=== PATIENT | male | born 1965 | race Caucasian/White ===

== ENCOUNTER 2024-06-06 16:51 | Emergency (ER) | payer OTHER ==
--- OUTSIDE RECORDS SUMMARY | 2024-06-06 16:55 | XMS REPORT | Continuity of Care Document ---
Author Name Unknown Address [address] [facility] [address] [place] [address] [facility] Address [address] [facility] [address] [place] [address] Care Team Providers Care Public Speaking Coach Name Role Phone JESS LEONARD Primary Care Physician Unavailab JESS Voss Attending Clinician Unavailable Ace HARDING, Jess Attending Clinician [phone] Jess Leonard MD Attending Clinician [phone] Stepan Glover MD Attending Clinician [phone] Doctor Unassigned, [place] Attending Clinician U sophia Madden MD, Ellen Joseph Attending Clinician [phone] ELLEN MADDEN Attending Clinician Unavailabl e Lab, Adc Fam Pob I Attending Clinician Unavailab le 2, [facility] Lab Attending Clinician Unavailable Payers Payer Name Policy Type Policy Number Effective Date Expirati on Date Source [employer] [id number] 2018 00:00:00 Problems Condition Name Condition Details Condition Category Status Onset Date Resolution Date Last Treatment Date Treating Clinician Comments Source Current smoker Current smoker Disease Active 2014-08 00:00: 00 [facility] Essential hypertensi on, benign Essential hypertensi on, benign Disease Active 2014-08 00:00: 00 [facility] H/O: hypertensi on H/O: hypertensi on Disease Active 2014-08 00:00: 00 [facility] Obesity Obesity Disease Active 2014-08 00:00: 00 [facility] ADD (attention deficit disorder) without hyperactiv ity ADD (attention deficit disorder) without hyperactiv ity Disease Active 2014-08 00:00: 00 [facility] Osteoarthr itis Osteoarthr itis Disease Active 2014-08 00:00: 00 [facility] Allergies, Adverse Reactions, Alerts Allergy Name Allergy Type Status Severity Reaction(s) Onset Date Inactive Date Treating Clinician Comments Source Nsaids (Non-Bridger roidal Anti-Inf lammator y Drug) Propensi ty to adverse reaction s to drug Active Other - See comments 2014-08 00:00: 00 Bloody stool [facility] Nsaids (Non-Bridger roidal Anti-Inf lammator y Drug) Propensi ty to adverse reaction s to drug Active Other - See comments 2014-08 00:00: 00 Bloody stool [facility] NSAIDS (NON-BRIDGER ROIDAL ANTI-INF LAMMATOR Y DRUG) Drug Class Active Other-Cmnt 2014-08 00:00: 00 [facility] Social History Social Habit Start Date Stop Date Quantity Comments Source Gender identity [facility] Sexual orientation U [facility] History of tobacco use Cigarette Smoker [facility] Alcoholic beverage intake 2024-05-03 00:00:00 2024-05-03 00:00:00 Current drinker of alcohol (finding) [facility] Tobacco use and exposure 2024-01-11 00:00:00 2024-01-11 00:00:00 Smokeless tobacco non-user [facility] Alcohol intake 2023-12-08 00:00:00 2023-12-08 00:00:00 Current drinker of alcohol (finding) [facility] History of Social function 2023-03-10 00:00:00 2023-03-10 00:00:00 [facility] Exposure to SARS-CoV-2 (event) 2022-11-29 00:00:00 2022-12-09 13:53:00 Not sure [facility] Cigarettes smoked current (pack per day) - Reported 2022-03-25 00:00:00 2022-03-25 00:00:00 [facility] Sex assigned at 1965 00:00:00 1965 00:00:00 [facility] Smoking Status Start Date Stop Date Source Smokes tobacco daily 2024-01-11 00:00:00 [facility] Medications Ordered Medication Name Filled Medication Name Start Date Stop Date Current Medication? Ordering Clinician Indication Dosage Frequency Signature (SIG) Comments Components Source amphetamine -dextroamph etamine (ADDERALL XR) 30 mg 24 hr capsule 05-03 00:00: 00 Yes [id number] TAKE 1 CAPSULE BY MOUTH 2 TIMES DAILY. [facility] montelukast 10 mg tablet 05-03 00:00: 00 Yes [id number] 10mg Take 1 tablet by mouth in the morning. [facility] benazepriL 10 mg tablet 03-15 00:00: 00 Yes [id number] 10mg Take 1 tablet by mouth in the morning. [facility] amphetamine -dextroamph etamine (ADDERALL XR) 30 mg 24 hr capsule 03-15 00:00: 00 05-03 00:00 :00 No [id number] TAKE 1 CAPSULE BY MOUTH 2 TIMES DAILY. [facility] amphetamine -dextroamph etamine (ADDERALL XR) 30 mg 24 hr capsule 02-26 00:00: 00 03-15 00:00 :00 No [id number] TAKE 1 CAPSULE BY MOUTH 2 TIMES DAILY. [facility] amphetamine -dextroamph etamine (ADDERALL XR) 30 mg 24 hr capsule 01-31 00:00: 00 02-26 00:00 :00 No [id number] TAKE 1 CAPSULE BY MOUTH 2 TIMES DAILY. [facility] predniSONE 20 mg tablet 01-10 00:00: 00 Yes [id number] 20mg Take 1 tablet by mouth in the morning. [facility] cefUROXime 500 mg tablet 01-10 00:00: 00 03-15 00:00 :00 No [id number] 500mg Take 1 tablet by mouth in the morning and 1 tablet in the evening. [facility] amphetamine -dextroamph etamine (ADDERALL XR) 30 mg 24 hr capsule 2023-0 5-22 00:00: 00 01-31 00:00 :00 No [id number] TAKE 1 CAPSULE BY MOUTH 2 TIMES DAILY. [facility] amphetamine -dextroamph etamine (ADDERALL XR) 30 mg 24 hr capsule 0 4-17 00:00: 00 12-26 00:00 :00 No [id number] TAKE 1 CAPSULE BY MOUTH 2 TIMES DAILY. [facility] amphetamine -dextroamph etamine (ADDERALL XR) 30 mg 24 hr capsule 0 4-15 00:00: 00 11-21 00:00 :00 No [id number] TAKE 1 CAPSULE BY MOUTH 2 TIMES DAILY. [facility] amphetamine -dextroamph etamine (ADDERALL XR) 30 mg 24 hr capsule 0 3-18 00:00: 00 Yes [id number] TAKE 1 CAPSULE BY MOUTH 2 TIMES DAILY. [facility] amphetamine -dextroamph etamine (ADDERALL XR) 30 mg 24 hr capsule 0 2-01 00:00: 00 10-20 00:00 :00 No [id number] TAKE 1 CAPSULE BY MOUTH 2 TIMES DAILY. [facility] amphetamine -dextroamph etamine (ADDERALL XR) 30 mg 24 hr capsule 0 1-17 00:00: 00 09-08 00:00 :00 No [id number] TAKE 1 CAPSULE BY MOUTH 2 TIMES DAILY. [facility] amphetamine -dextroamph etamine (ADDERALL XR) 30 mg 24 hr capsule 2022-08 2-13 00:00: 00 08-24 00:00 :00 No [id number] TAKE 1 CAPSULE BY MOUTH 2 TIMES DAILY. [facility] amphetamine -dextroamph etamine (ADDERALL XR) 30 mg 24 hr capsule 2022-08 2-11 00:00: 00 07-20 00:00 :00 No [id number] TAKE 1 CAPSULE BY MOUTH 2 TIMES DAILY. [facility] fenofibrate 48 mg tablet 2022-08 1-02 00:00: 00 03-15 00:00 :00 No [id number] 48mg Take 1 tablet by mouth in the morning. [facility] amphetamine -dextroamph etamine (ADDERALL XR) 30 mg 24 hr capsule 2022-08 1-02 00:00: 00 07-18 00:00 :00 No [id number] TAKE 1 CAPSULE BY MOUTH 2 TIMES DAILY. [facility] amphetamine -dextroamph etamine (ADDERALL XR) 30 mg 24 hr capsule 2022-08 0-09 00:00: 00 06-09 00:00 :00 No [id number] TAKE 1 CAPSULE BY MOUTH 2 TIMES DAILY. [facility] amphetamine -dextroamph etamine (ADDERALL XR) 30 mg 24 hr capsule 0 9-05 00:00: 00 Yes [id number] TAKE 1 CAPSULE BY MOUTH 2 TIMES DAILY. [facility] benazepriL 10 mg tablet 8-03 00:00: 00 03-15 00:00 :00 No [id number] 10mg Take 1 tablet by mouth in the morning. [facility] fenofibrate 48 mg tablet 8-03 00:00: 00 06-09 00:00 :00 No [id number] 48mg Take 1 tablet by mouth in the morning. [facility] cefadroxil 500 mg capsule 8-03 00:00: 00 06-09 00:00 :00 No [id number] 500mg Take 1 capsule by mouth in the morning and 1 capsule in the evening. [facility] amphetamine -dextroamph etamine (ADDERALL XR) 30 mg 24 hr capsule 0 8-03 00:00: 00 04-12 00:00 :00 No [id number] TAKE 1 CAPSULE BY MOUTH 2 TIMES DAILY. [facility] amphetamine -dextroamph etamine (ADDERALL XR) 30 mg 24 hr capsule 2022-0 7-03 00:00: 00 03-10 00:00 :00 No [id number] TAKE 1 CAPSULE BY MOUTH 2 TIMES DAILY. [facility] amphetamine -dextroamph etamine (ADDERALL XR) 30 mg 24 hr capsule 0 6-05 00:00: 00 Yes [id number] TAKE 1 CAPSULE BY MOUTH 2 TIMES DAILY. [facility] fenofibrate 48 mg tablet 5-04 00:00: 00 03-10 00:00 :00 No [id number] 48mg Take 1 tablet by mouth in the morning. [facility] benazepriL 10 mg tablet 5-04 00:00: 00 03-10 00:00 :00 No [id number] 10mg Take 1 tablet by mouth in the morning. [facility] amphetamine -dextroamph etamine (ADDERALL XR) 30 mg 24 hr capsule 5-04 00:00: 00 01-10 00:00 :00 No [id number] TAKE 1 CAPSULE BY MOUTH 2 TIMES DAILY. [facility] amphetamine -dextroamph etamine (ADDERALL XR) 30 mg 24 hr capsule 4-05 00:00: 00 12-09 00:00 :00 No [id number] TAKE 1 CAPSULE BY MOUTH 2 TIMES DAILY. [facility] amphetamine -dextroamph etamine (ADDERALL XR) 30 mg 24 hr capsule 3-09 00:00: 00 Yes [id number] TAKE 1 CAPSULE BY MOUTH 2 TIMES DAILY. [facility] HYDROcodone -acetaminop hen 10-325 mg tablet 2-02 00:00: 00 06-09 00:00 :00 No [id number] TAKE 1 TABLET BY MOUTH EVERY SIX HOURS NEEDED FOR PAIN Indication s: chronic pain [facility] carisoprodo L 350 mg tablet 2-02 00:00: 00 06-09 00:00 :00 No [id number] 350mg Take 1 tablet by mouth 4 (four) times daily. [facility] fenofibrate 48 mg tablet 2-02 00:00: 00 12-09 00:00 :00 No [id number] 48mg Take 1 tablet by mouth in the morning. [facility] benazepriL 10 mg tablet 2-02 00:00: 00 12-09 00:00 :00 No [id number] 10mg Take 1 tablet by mouth in the morning. [facility] amphetamine -dextroamph etamine (ADDERALL XR) 30 mg 24 hr capsule 09-09 00:00: 00 10-14 00:00 :00 No [id number] TAKE 1 CAPSULE BY MOUTH 2 TIMES DAILY. [facility] HYDROcodone -acetaminop hen 10-325 mg tablet 2021-08 00:00: 00 09-09 00:00 :00 No [id number] TAKE 1 TABLET BY MOUTH EVERY SIX HOURS NEEDED FOR PAIN Indication s: chronic pain [facility] amphetamine -dextroamph etamine (ADDERALL XR) 30 mg 24 hr capsule 2021-08 00:00: 00 09-09 00:00 :00 No [id number] TAKE 1 CAPSULE BY MOUTH 2 TIMES DAILY. [facility] HYDROcodone -acetaminop hen 10-325 mg tablet 2021-08 00:00: 00 08-05 00:00 :00 No [id number] TAKE 1 TABLET BY MOUTH EVERY SIX HOURS NEEDED FOR PAIN Indication s: chronic pain [facility] amphetamine -dextroamph etamine (ADDERALL XR) 30 mg 24 hr capsule 2021-08 00:00: 00 08-05 00:00 :00 No [id number] TAKE 1 CAPSULE BY MOUTH 2 TIMES DAILY. [facility] diazePAM 5 mg tablet 2021-08-15 00:00: 00 06-09 00:00 :00 No [facility] acetaminoph en-codeine 300-30 mg tablet 2021-08 1-10 00:00: 00 09-09 00:00 :00 No [facility] fenofibrate 48 mg tablet 2021-08- 00:00: 00 09-09 00:00 :00 No [id number] 48mg Take 1 tablet by mouth in the morning. [facility] HYDROcodone -acetaminop hen 10-325 mg tablet 2021-08- 00:00: 00 07-12 00:00 :00 No [id number] TAKE 1 TABLET BY MOUTH EVERY SIX HOURS NEEDED FOR PAIN Indication s: chronic pain [facility] amphetamine -dextroamph etamine (ADDERALL XR) 30 mg 24 hr capsule 2021-08 00:00: 07-12 00:00 :00 No [id number] TAKE 1 CAPSULE BY MOUTH 2 TIMES DAILY. [facility] amphetamine -dextroamph etamine (ADDERALL XR) 30 mg 24 hr capsule 2021-08 00:00: 06-10 00:00 :00 No [id number] TAKE 1 CAPSULE BY MOUTH 2 TIMES DAILY. [facility] HYDROcodone -acetaminop hen 10-325 mg tablet 2021-08 00:00: 00 06-10 00:00 :00 No [id number] TAKE 1 TABLET BY MOUTH EVERY SIX HOURS NEEDED FOR PAIN Indication s: chronic pain [facility] carisoprodo L 350 mg tablet 04-19 00:00: 00 09-09 00:00 :00 No [id number] 350mg Take 1 tablet by mouth 4 (four) times daily. [facility] amphetamine -dextroamph etamine (ADDERALL XR) 30 mg 24 hr capsule 04-19 00:00: 00 05-17 00:00 :00 No [id number] TAKE 1 CAPSULE BY MOUTH 2 TIMES DAILY. [facility] HYDROcodone -acetaminop hen 10-325 mg tablet 04-19 00:00: 00 05-17 00:00 :00 No [id number] TAKE 1 TABLET BY MOUTH EVERY SIX HOURS NEEDED FOR PAIN Indication s: chronic pain [facility] aspirin 81 mg EC tablet 03-18 14:42: 32 Yes [id number] 81mg Take 81 mg by mouth daily. [facility] levocetiriz ine 5 mg tablet 03-18 14:42: 32 Yes 5mg Take 5 mg by mouth every evening. [facility] amphetamine -dextroamph etamine (ADDERALL XR) 30 mg 24 hr capsule 03-18 00:00: 00 Yes [id number] TAKE 1 CAPSULE BY MOUTH 2 TIMES DAILY. [facility] HYDROcodone -acetaminop hen 10-325 mg tablet 03-18 00:00: 00 Yes [id number] TAKE 1 TABLET BY MOUTH EVERY SIX HOURS NEEDED FOR PAIN Indication s: chronic pain [facility] benazepriL 10 mg tablet 03-18 00:00: 00 09-09 00:00 :00 No [id number] 10mg Take 1 tablet by mouth in the morning. [facility] fenofibrate 48 mg tablet 03-18 00:00: 00 06-10 00:00 :00 No [id number] 48mg Take 1 tablet by mouth in the morning. [facility] carisoprodo L 350 mg tablet 11-22 00:00: 00 Yes [id number] 350mg Take 1 tablet by mouth 4 (four) times daily. [facility] Vital Signs Vital Name Observation Time Observation Value Comments S ource Systolic blood pressure 2024-05-03 18:41:00 165 mm[Hg] [facility] Diastolic blood pressure 2024-05-03 18:41:00 80 mm[Hg] [facility] Heart rate 2024-05-03 18:40:00 87 /min [facility] Body height 2024-05-03 18:40:00 180.3 cm [facility] Body weight 2024-05-03 18:40:00 102.513 kg [facility] BMI 2024-05-03 18:40:00 31.52 kg/m2 [facility] Oxygen saturation in Arterial blood by Pulse oximetry 2024-05-03 18:40:00 98 /min [facility] Systolic blood pressure 2024-03-15 20:04:00 166 mm[Hg] [facility] Diastolic blood pressure 2024-03-15 20:04:00 91 mm[Hg] [facility] Heart rate 2024-03-15 20:03:00 80 /min [facility] Body height 2024-03-15 20:03:00 180.3 cm [facility] Body weight 2024-03-15 20:03:00 102.513 kg [facility] BMI 2024-03-15 20:03:00 31.52 kg/m2 [facility] Oxygen saturation in Arterial blood by Pulse oximetry 2024-03-15 20:03:00 98 /min [facility] Systolic blood pressure 2024-01-11 19:59:00 176 mm[Hg] [facility] Diastolic blood pressure 2024-01-11 19:59:00 86 mm[Hg] [facility] Heart rate 2024-01-11 19:58:00 78 /min [facility] Body temperature 2024-01-11 19:58:00 36.44 Sabi [facility] Body height 2024-01-11 19:58:00 180.3 cm [facility] Body weight 2024-01-11 19:58:00 100.562 kg [facility] BMI 2024-01-11 19:58:00 30.92 kg/m2 [facility] Oxygen saturation in Arterial blood by Pulse oximetry 2024-01-11 19:58:00 98 /min [facility] Systolic blood pressure 2023-12-08 20:31:00 160 mm[Hg] [facility] Diastolic blood pressure 2023-12-08 20:31:00 85 mm[Hg] [facility] Heart rate 2023-12-08 20:30:00 79 /min [facility] 2023-12-08 20:30:00 180.3 cm [facility] Body weight 2023-12-08 20:30:00 105.552 kg [facility] BMI 2023-12-08 20:30:00 32.46 kg/m2 [facility] Oxygen saturation in Arterial blood by Pulse oximetry 2023-12-08 20:30:00 98 /min [facility] Systolic blood pressure 2023-09-08 20:19:00 169 mm[Hg] [facility] Diastolic blood pressure 2023-09-08 20:19:00 91 mm[Hg] [facility] Heart rate 2023-09-08 20:18:00 82 /min [facility] Body height 2023-09-08 20:18:00 180.3 cm [facility] Body weight 2023-09-08 20:18:00 109.09 kg [facility] BMI 2023-09-08 20:18:00 33.54 kg/m2 [facility] Oxygen saturation in Arterial blood by Pulse oximetry 2023-09-08 20:18:00 98 /min [facility] Systolic blood pressure 2023-06-09 19:44:00 180 mm[Hg] [facility] Diastolic blood pressure 2023-06-09 19:44:00 103 mm[Hg] [facility] Body height 2023-06-09 19:40:00 180.3 cm [facility] Body weight 2023-06-09 19:40:00 114.034 kg [facility] BMI 2023-06-09 19:40:00 35.06 kg/m2 [facility] Systolic blood pressure 2023-03-10 19:53:00 156 mm[Hg] [facility] Diastolic blood pressure 2023-03-10 19:53:00 89 mm[Hg] [facility] Heart rate 2023-03-10 19:52:00 78 /min [facility] Respiratory rate 2023-03-10 19:52:00 18 /min [facility] Body height 2023-03-10 19:52:00 180.3 cm [facility] Body weight 2023-03-10 19:52:00 117.935 kg [facility] BMI 2023-03-10 19:52:00 36.26 kg/m2 [facility] Oxygen saturation in Arterial blood by Pulse oximetry 2023-03-10 19:52:00 97 /min [facility] Systolic blood pressure 2022-12-09 19:09:00 131 mm[Hg] [facility] Diastolic blood pressure 2022-12-09 19:09:00 76 mm[Hg] [facility] Heart rate 2022-12-09 19:02:00 79 /min [facility] Body height 2022-12-09 19:02:00 180.3 cm [facility] Body weight 2022-12-09 19:02:00 114.306 kg [facility] BMI 2022-12-09 19:02:00 35.15 kg/m2 [facility] Oxygen saturation in Arterial blood by Pulse oximetry 2022-12-09 19:02:00 97 /min [facility] Systolic blood pressure 2022-09-09 18:58:00 144 mm[Hg] [facility] Diastolic blood pressure 2022-09-09 18:58:00 71 mm[Hg] [facility] Heart rate 2022-09-09 18:57:00 79 /min [facility] Body height 2022-09-09 18:57:00 180.3 cm [facility] Body weight 2022-09-09 18:57:00 119.432 kg [facility] BMI 2022-09-09 18:57:00 36.72 kg/m2 [facility] Oxygen saturation in Arterial blood by Pulse oximetry 2022-09-09 18:57:00 98 /min [facility] Systolic blood pressure 2022-06-10 19:30:00 162 mm[Hg] [facility] Diastolic blood pressure 2022-06-10 19:30:00 78 mm[Hg] [facility] Heart rate 2022-06-10 19:30:00 91 /min [facility] Body temperature 2022-06-10 19:30:00 36.67 Sabi [facility] Body height 2022-06-10 19:30:00 180.3 cm [facility] Body weight 2022-06-10 19:30:00 118.842 kg [facility] BMI 2022-06-10 19:30:00 36.54 kg/m2 [facility] Oxygen saturation in Arterial blood by Pulse oximetry 2022-06-10 19:30:00 97 /min [facility] Systolic blood pressure 2022-03-25 18:57:00 153 mm[Hg] [facility] Diastolic blood pressure 2022-03-25 18:57:00 85 mm[Hg] [facility] Heart rate 2022-03-25 18:51:00 82 /min [facility] Body height 2022-03-25 18:51:00 180.3 cm [facility] Body weight 2022-03-25 18:51:00 122.925 kg [facility] BMI 2022-03-25 18:51:00 37.80 kg/m2 [facility] Oxygen saturation in Arterial blood by Pulse oximetry 2022-03-25 18:51:00 98 /min [facility] Procedures Procedure Date / Time Performed Performing Clinician Source MEDICATION CORRESPONDENCE 2023-07-25 06:01:00 Do ctor Unassigned, [place] [facility] MEDICATION CORRESPONDENCE 2023-07-18 06:01:00 Do ctor Unassigned, [place] [facility] PATIENT FINANCIAL POLICY 2022-12-09 18:55:12 Doctor Unassigned, [place] [facility] EXTERNAL PROVIDER RECORDS 2022-11-29 05:01:00 Do ctor Unassigned, [place] [facility] MEDICATION CORRESPONDENCE 2022-07-12 06:01:00 Do ctor Unassigned, [place] [facility] Encounters Start Date/Time End Date/Time Encounter Type Admission Type Attending Clinicians Care Facility Care Department Encounter ID Source 2024-06-14 15:15:00 2024-06-14 15:15:00 Outpatient R JESS LEONARD [facility] [id number] [facility] 2024-05-03 13:30:00 2024-05-03 14:00:00 [facility] [id number] 350.1.13.10 [id number] [id number] [facility] 2024-05-03 13:30:00 2024-05-03 13:30:00 Outpatient R JESS LEONARD [facility] [id number] [facility] 2024-05-03 00:00:00 2024-05-03 10:24:06 [facility] [id number] 350.1.13.10 [id number] [id number] [facility] 2024-04-26 13:30:00 2024-04-26 13:30:00 Outpatient JESS MASON [facility] [id number] [facility] 2024-02-27 00:00:00 2024-04-25 11:19:41 [facility] 1..840.114 350.1.13.10 4.2.7.2.686 [id number] [facility] 2024-03-28 00:00:00 2024-03-28 15:41:06 [facility] 1..840.114 350.1.13.10 4.2.7.2.686 [id number] [facility] 2024-03-15 15:00:00 2024-03-15 15:26:53 Outpatient JESS MASON [facility] [id number] [facility] 2024-03-15 15:00:00 2024-03-15 15:15:00 [facility] 1..840.114 350.1.13.10 4.2.7.2.686 [id number] [facility] 2024-02-01 00:00:00 2024-02-01 09:14:22 [facility] 1.2.840.114 350.1.13.10 4.2.7.2.686 [id number] [facility] 2024-01-11 15:00:00 2024-01-11 15:15:00 Office Visit Jess Leonard [facility] 1.2.840.114 350.1.13.10 4.2.7.2.686 [id number] [facility] 2024-01-11 15:00:00 2024-01-11 15:00:00 Outpatient R SYLVIA LEONARDONY [facility] [id number] [facility] 2023-12-28 00:00:00 2023-12-28 15:45:[address] [facility] 1.2.840.114 350.1.13.10 4.2.7.2.686 [id number] [facility] 2023 00:00:00 2023-12-28 06:20:[address] [facility] 1.2.840.114 350.1.13.10 4.2.7.2.686 [id number] [facility] 2023-12-08 15:15:00 2023-12-08 15:30:00 Office Visit Jess Leonard [facility] 1.2.840.114 350.1.13.10 4.2.7.2.686 [id number] [facility] 2023-12-08 15:15:00 2023-12-08 15:15:00 Outpatient R SYLVIA LEONARDONY [facility] [id number] [facility] 2023-11-22 00:00:00 2023-11-22 00:00:00 Telephone Stepan Glover [facility] 1..114 350.1.13.10 4.2.7.2.686 [id number] 044 [id number] [facility] 2023-11-17 00:00:00 2023-11-17 00:00:00 [facility] 1.840.114 350.1.13.10 4.2.7.2.686 [id number] 044 [id number] [facility] 2023-10-21 00:00:00 2023-10-21 00:00:00 Refill Ace Jess [facility] 1..114 350.1.13.10 4.2.7.2.686 [id number] 044 [id number] [facility] 2023-09-08 15:15:00 2023-09-08 15:30:00 Office Visit Jess Leonard [facility] 1..114 350.1.13.10 4.2.7.2.686 [id number] 044 [id number] [facility] 2023-09-08 15:15:00 2023-09-08 14:24:41 Outpatient R JESS LEONARD [facility] [id number] [facility] 2023-08-24 00:00:00 2023-08-24 00:00:[address] [facility] 1..114 350.1.13.10 4.2.7.2.686 [id number] 044 [id number] [facility] 2023-07-25 00:00:00 2023-07-25 00:00:00 Orders Only Doctor Unassigned, [place] [facility] 1..114 350.1.13.10 4.2.7.2.686 [id number] [id number] [facility] 2023-07-23 00:00:00 2023-07-23 00:00:00 Telephone [facility] 1.2.840.114 350.1.13.10 4.2.7.2.686 [id number] 044 [id number] [facility] 2023-07-21 00:00:00 2023-07-21 00:00:00 Telephone [facility] 1.2.840.114 350.1.13.10 4.2.7.2.686 [id number] 044 [id number] [facility] 2023-07-21 00:00:00 2023-07-21 00:00:00 Telephone Jess [facility] 1.2.840.114 350.1.13.10 4.2.7.2.686 [id number] 044 [id number] [facility] 2023-07-20 00:00:00 2023-07-20 00:00:00 Refill Jess [facility] 1.2.840.114 350.1.13.10 4.2.7.2.686 [id number] 044 [id number] [facility] 2023-07-20 00:00:00 2023-07-20 00:00:00 Telephone Jess Leonard [facility] 1.2.840.114 350.1.13.10 4.2.7.2.686 [id number] 044 [id number] [facility] 2023-07-19 00:00:00 2023-07-19 00:00:00 Telephone Jess Leonard [facility] 1.2.840.114 350.1.13.10 4.2.7.2.686 [id number] 044 [id number] [facility] 2023-07-18 00:00:00 2023-07-18 00:00:00 [facility] 1.84.114 350.1.13.10 4.2.7.2.686 [id number] 044 [id number] [facility] 2023-07-18 00:00:00 2023-07-18 00:00:00 Orders Only Doctor Unassigned, [place] [facility] 1.84.114 350.1.13.10 4.2.7.2.686 [id number] 009 [id number] [facility] 2023-06-09 15:15:00 2023-06-09 15:15:00 Office Visit Jess Leonard [facility] 1.84.114 350.1.13.10 4.2.7.2.686 [id number] 044 [id number] [facility] 2023-06-09 15:15:00 2023-06-09 15:00:16 Outpatient R JESS LEONARD [facility] [id number] [facility] 2023-05-13 00:00:00 2023-05-13 00:00:00 Telephone Jess Leonard [facility] 1.84.114 350.1.13.10 4.2.7.2.686 [id number] 044 [id number] [facility] 2023-04-07 00:00:00 2023-04-07 00:00:00 Refill Jess Leonard [facility] 1..114 350.1.13.10 4.2.7.2.686 [id number] [facility] 2023-03-10 15:00:00 2023-03-10 15:30:00 [facility] 1.284.114 350.1.13.10 4.2.7.2.686 [id number] 044 [id number] [facility] 2023-03-10 15:00:00 2023-03-10 15:00:00 Outpatient R JESS LEONARD [facility] [id number] [facility] 2023-02-07 00:00:00 2023-02-07 00:00:00 [facility] 1.840.114 350.1.13.10 4.2.7.2.686 [id number] 044 [id number] [facility] 2023-01-10 00:00:00 2023-01-10 00:00:[address] [facility]HAEL [facility] 1.84.114 350.1.13.10 4.2.7.2.686 [id number] 044 [id number] [facility] 2022-12-09 14:00:00 2022-12-09 14:21:41 Outpatient R JESS LEONARD [facility] [id number] [facility] 2022-12-09 14:00:00 2022-12-09 14:21:41 [facility] 1.284.114 350.1.13.10 4.2.7.2.686 [id number] 044 [id number] [facility] 2022-12-09 00:00:00 2022-12-09 00:00:00 Orders Only Doctor Unassigned, [place] [facility] 1.284114 350.1.13.10 4.2.7.2.686 [id number] 009 [id number] [facility] 2022-11-29 00:00:00 2022-11-29 00:00:00 Orders Only Doctor Unassigned, [place] [facility] 1.2840.114 350.1.13.10 4.2.7.2.686 [id number] 009 [id number] [facility] 2022-11-19 00:00:00 2022-11-19 00:00:00 Telephone Jess Leonard [facility]EL [facility] 1.2840.114 350.1.13.10 4.2.7.2.686 [id number] 044 [id number] [facility] 2022-11-09 00:00:00 2022-11-09 00:00:00 [facility] 1.2840.114 350.1.13.10 4.2.7.2.686 [id number] 044 [id number] [facility] 2022-10-07 00:00:00 2022-10-07 00:00:[address] [facility] 1.840.114 350.1.13.10 4.2.7.2.686 [id number] 044 [id number] [facility] 2022-09-09 14:45:00 2022-09-09 14:45:00 Outpatient R JESS LEONARD [facility] [id number] [facility] 2022-09-09 13:00:00 2022-09-09 13:15:38 Outpatient R JESS LEONARD [facility] [id number] [facility] 2022-09-09 13:00:00 2022-09-09 13:15:[address] [facility] 1.284.114 350.1.13.10 4.2.7.2.686 [id number] 044 [id number] [facility] 2022-09-02 14:45:00 2022-09-02 14:45:00 Outpatient R JESS LEONARD [facility] [id number] [facility] 2022-08-10 00:00:00 2022-08-10 00:00:00 Telephone Jess [facility] 1.2840.114 350.1.13.10 4.2.7.2.686 [id number] 044 [id number] [facility] 2022-08-05 00:00:00 2022-08-05 00:00:00 Refill Jess [facility] 1.2.114 350.1.13.10 4.2.7.2.686 [id number] 044 [id number] [facility] 2022-07-13 00:00:00 2022-07-13 00:00:00 [facility]ill [facility] 1.20.114 350.1.13.10 4.2.7.2.686 [id number] 044 [id number] [facility] 2022-07-12 00:00:00 2022-07-12 00:00:00 [facility] 1.20.114 350.1.13.10 4.2.7.2.686 [id number] 044 [id number] [facility] 2022-07-12 00:00:00 2022-07-12 00:00:00 [facility] 1.2.114 350.1.13.10 4.2.7.2.686 [id number] 044 [id number] [facility] 2022-07-12 00:00:00 2022-07-12 00:00:00 Orders Only Doctor Unassigned, [place] [facility] 1.20.114 350.1.13.10 4.2.7.2.686 [id number] [id number] [facility] 2022-06-10 15:00:00 2022-06-10 15:00:00 Office Visit Jess [facility] 1.2.840.114 350.1.13.10 4.2.7.2.686 [id number] 044 [id number] [facility] 2022-06-10 15:00:00 2022-06-10 14:54:31 Outpatient R JESS LEONARD [facility] [id number] [facility] 2022-05-17 00:00:00 2022-05-17 00:00:00 Refill Sylvia LeonardFoundation [facility] 1.2840.114 350.1.13.10 4.2.7.2.686 [id number] 044 [id number] [facility] 2022-04-19 00:00:00 2022-04-19 00:00:00 Telephone Sylvia [facility]Foundation [facility] 1.2840.114 350.1.13.10 4.2.7.2.686 [id number] 044 [id number] [facility] 2022-04-19 00:00:00 2022-04-19 00:00:00 Refill Jess Leonard [facility] 1.2840.114 350.1.13.10 4.2.7.2.686 [id number] 044 [id number] [facility] 2022-03-25 14:00:00 2022-03-25 14:30:00 Office Visit Sylvia LeonardFoundation [facility]EL [facility] 1.2.840.114 350.1.13.10 4.2.7.2.686 [id number] 044 [id number] [facility] 2022-03-25 14:00:00 2022-03-25 14:00:00 Outpatient R JESS LEONARD [facility] [id number] [facility] 2022-03-18 14:45:00 2022-03-18 15:00:00 Office Visit Jess [facility] 1.2.840.114 350.1.13.10 4.2.7.2.686 [id number] 044 [id number] [facility] 2022-03-18 14:45:00 2022-03-18 14:51:08 Outpatient R JESS LEONARD [facility] [id number] [facility] 2022-03-18 14:45:00 2022-03-18 14:45:00 Outpatient JESS MASON [facility] [id number] [facility] 2022-02-18 00:00:00 2022-02-18 00:00:00 Refill Jess Leonard [facility] 1.2.840.114 350.1.13.10 4.2.7.2.686 [id number] 044 [id number] [facility] 2022-01-21 00:00:00 2022-01-21 00:00:00 Telephone Jess Leonard [facility] 1.2.840.114 350.1.13.10 4.2.7.2.686 [id number] 044 [id number] [facility] 2022-01-19 00:00:00 2022-01-19 00:00:00 Telephone Jess Leonard [facility] 1.2.840.114 350.1.13.10 4.2.7.2.686 [id number] 044 [id number] [facility] 2021-12-24 14:45:00 2021-12-24 15:00:00 Office Visit Jess Leonard [facility] 1.2840.114 350.1.13.10 4.2.7.2.686 [id number] 044 [id number] [facility] 2021-12-24 14:45:00 2021-12-24 14:53:06 [facility] [id number] [facility] 2021-12-24 14:45:00 2021-12-24 14:45:00 Outpatient Sue LEONARD [facility] [id number] [facility] 2021-11-25 00:00:00 2021-11-25 00:00:00 Orders Only Doctor Unassigned, [place] [facility] 1.284.114 350.1.13.10 4.2.7.2.686 [id number] [facility] 2021-11-19 00:00:00 2021-11-19 00:00:00 Refill Leonard [facility] 1.284.114 350.1.13.10 4.2.7.2.686 [id number] 044 [id number] [facility] 2021-11-12 10:45:00 2021-11-12 10:45:00 Office Visit Ellen Madden [facility] 1.84.114 350.1.13.10 4.2.7.2.686 [id number] [facility] 2021-11-12 10:45:00 2021-11-12 10:44:44 Outpatient ELLEN SANTIAGO [facility] [id number] [facility] 2021-11-03 00:00:00 2021-11-03 00:00:00 Orders Only Doctor Unassigned, [place] [facility] 1.2840.114 350.1.13.10 4.2.7.2.686 [id number] 009 [id number] [facility] 2021-10-23 00:00:00 2021-10-23 00:00:00 Maximo WalkerersJess [facility] OFF[facility]ILD[facility] ONE 1.84.114 350.1.13.10 4.2.7.2.686 [id number] 044 [id number] [facility] 2021-10-21 00:00:00 2021-10-21 00:00:00 Telephone Ellen Madden [facility] 1.84.114 350.1.13.10 4.2.7.2.686 [id number] 198 [id number] [facility] 2021-10-19 00:00:00 2021-10-19 00:00:00 Telephone Ellen Madden [facility] 1.840.114 350.1.13.10 4.2.7.2.686 [id number] [facility] 2021-10-09 11:15:00 2021-10-09 11:34:47 Office Visit Ellen Madden [facility] OFF[facility] 1..114 350.1.13.10 4.2.7.2.686 [id number] [facility] 2021-10-09 11:15:00 2021-10-09 11:34:47 Outpatient R ELLEN MADDEN [facility] [id number] [facility] 2021-10-09 11:15:00 2021-10-09 11:15:00 Outpatient R ELLEN MADDEN [facility] [id number] [facility] 2021-10-09 00:00:00 2021-10-09 00:00:00 Telephone Ellen Madden [facility] 1.84.114 350.1.13.10 4.2.7.2.686 [id number] [facility] 2021-10-09 00:00:00 2021-10-09 00:00:00 Orders Only Doctor Unassigned, [place] [facility] 1.2.840.114 350.1.13.10 4.2.7.2.686 [id number] [facility] 2021-10-01 14:45:00 2021-10-01 14:45:00 Outpatient R JESS LEONARD [facility] [id number] [facility] 2021-09-29 00:00:00 2021-09-29 00:00:00 Telephone Ellen Madden [facility] 1.2.840.114 350.1.13.10 4.2.7.2.686 [id number] [facility] 2021-09-24 15:13:57 2021-09-24 23:59:00 Hospital Encounter Jess Leonard [facility] 1..840.114 350.1.13.10 4.2.7.2.686 [id number] [facility] 2021-09-24 15:00:00 2021-09-24 15:15:00 Office Visit Leonard [facility] 1.2.840.114 350.1.13.10 4.2.7.2.686 [id number] 044 [id number] [facility] 2021-09-24 15:00:00 2021-09-24 15:14:35 Outpatient JESS MASON [facility] [id number] [facility] 2021-09-24 15:00:00 2021-09-24 15:00:00 Outpatient JESS MASON [facility] [id number] [facility] 2021-09-24 00:00:00 2021-09-24 00:00:00 Telephone [facility] 1.2.840.114 350.1.13.10 4.2.7.2.686 [id number] 044 [id number] [facility] 2021-08-26 00:00:00 2021-08-26 00:00:00 Refill Jess [facility] BUILD[facility] 1.2.840.114 350.1.13.10 4.2.7.2.686 [id number] 044 [id number] [facility] 2021-07-28 00:00:00 2021-07-28 00:00:00 Refill Jess Leonard [facility] 1.2.840.114 350.1.13.10 4.2.7.2.686 [id number] 044 [id number] [facility] 2021-07-28 00:00:00 2021-07-28 00:00:00 Refill Sylvia [facility]Foundation [facility] 1.2.840.114 350.1.13.10 4.2.7.2.686 [id number] 044 [id number] [facility] 2021-07-27 00:00:00 2021-07-27 00:00:00 Refill Jess [facility] 1.2.840.114 350.1.13.10 4.2.7.2.686 [id number] 044 [id number] [facility] 2021-07-14 00:00:00 2021-07-14 00:00:00 Telephone Jess [facility] 1.2.840.114 350.1.13.10 4.2.7.2.686 [id number] 044 [id number] [facility] 2021-07-11 00:00:00 2021-07-11 00:00:00 Orders Only Doctor Unassigned, [place] [facility] 1..114 350.1.13.10 4.2.7.2.686 [id number] [facility] 2021-07-08 00:00:00 2021-07-08 00:00:00 Telephone Jess Leonard [facility] 1..114 350.1.13.10 4.2.7.2.686 [id number] 044 [id number] [facility] 2021-07-07 00:00:00 2021-07-07 00:00:00 Telephone Jess Leonard [facility] 1.114 350.1.13.10 4.2.7.2.686 [id number] 044 [id number] [facility] 2021-07-01 14:45:00 2021-07-01 14:45:00 Outpatient R JESS LEONARD [facility] [id number] [facility] 2021-07-01 14:45:00 2021-07-01 12:55:47 Outpatient R JESS LEONARD [facility] [id number] [facility] 2021-07-01 12:28:45 2021-07-01 12:43:45 Office Visit Jess Leonard [facility] 1.114 350.1.13.10 4.2.7.2.686 [id number] 044 [id number] [facility] 2021-07-01 00:00:00 2021-07-01 00:00:00 [facility] OFF[facility]ILD[facility] ONE 1..114 350.1.13.10 4.2.7.2.686 [id number] 044 [id number] [facility] 2021-07-01 00:00:00 2021-07-01 00:00:00 Telephone [facility]ILD[facility] 1.2.840.114 350.1.13.10 4.2.7.2.686 [id number] 044 [id number] [facility] 2021-05-29 00:00:00 2021-05-29 00:00:00 [facility] Medical Office Building 1.2.840.114 350.1.13.10 4.2.7.2.686 [id number] 044 [id number] [facility] 2021-05-28 00:00:00 2021-05-28 00:00:00 [facility] Medical [facility] Building 1..840.114 350.1.13.10 4.2.7.2.686 [id number] 044 [id number] [facility] 2021-05-27 00:00:00 2021-05-27 00:00:00 [facility]ill [facility] Medical Office Building 1.2.840.114 350.1.13.10 4.2.7.2.686 [id number] 044 [id number] [facility] 2021-04-30 00:00:00 2021-04-30 00:00:00 Refill [facility] Medical Office Building 1.2.840.114 350.1.13.10 4.2.7.2.686 [id number] 044 [id number] [facility] 2021-04-02 14:30:00 2021-04-02 14:30:00 Outpatient R JESS LEONARD [facility] [id number] [facility] 2021-04-02 13:40:58 2021-04-02 13:55:58 [facility] Building 1.840.114 350.1.13.10 4.2.7.2.686 [id number] 044 [id number] [facility] 2021-04-02 00:00:00 2021-04-02 00:00:00 Refill [facility] 1.0.114 350.1.13.10 4.2.7.2.686 [id number] 044 [id number] [facility] 2021-04-02 00:00:00 2021-04-02 00:00:00 Refill [facility] 1..114 350.1.13.10 4.2.7.2.686 [id number] 044 [id number] [facility] 2021-02-19 00:00:00 2021-02-19 00:00:00 Refill [facility] 1.0.114 350.1.13.10 4.2.7.2.686 [id number] [id number] [facility] 2021-02-19 00:00:00 2021-02-19 00:00:00 Refill [facility] 1..114 350.1.13.10 4.2.7.2.686 [id number] [id number] [facility] 2021-01-22 00:00:00 2021-01-22 00:00:00 Refill [facility] 1..114 350.1.13.10 4.2.7.2.686 [id number] [id number] [facility] 2021-01-08 15:01:41 2021-01-08 15:16:41 Office Visit [facility] 1.2840.114 350.1.13.10 4.2.7.2.686 [id number] [id number] [facility] 2021-01-08 15:15:00 2021-01-08 15:15:00 Outpatient R LEONARDJESS TAYLOR [facility] [id number] [facility] 2021-01-01 14:00:00 2021-01-01 14:00:00 Outpatient R LEONARDJESS TAYLOR [facility] [id number] [facility] 2020-12-23 00:00:00 2020-12-23 00:00:00 Telephone [facility] 1.840.114 350.1.13.10 4.2.7.2.686 [id number] [facility] 2020-11-25 00:00:00 2020-11-25 00:00:00 Refill [facility] 1.840.114 350.1.13.10 4.2.7.2.686 [id number] [id number] [facility] 2020-10-23 00:00:00 2020-10-23 00:00:00 Refill [facility] 1.840.114 350.1.13.10 4.2.7.2.686 [id number] [id number] [facility] 2020-10-02 15:10:34 2020-10-02 15:30:47 [facility] 1.2840.114 350.1.13.10 4.2.7.2.686 [id number] [id number] [facility] 2020-10-02 15:15:00 2020-10-02 15:15:00 Outpatient R JESS LEONARD [facility] [id number] [facility] 2020-08-26 00:00:00 2020-08-26 00:00:00 Refill Jess Leonard [facility] 1..114 350.1.13.10 4.2.7.2.686 [id number] [id number] [facility] 2020-07-28 00:00:00 2020-07-28 00:00:00 Refill Jess Leonard [facility] 1..114 350.1.13.10 4.2.7.2.686 [id number] [id number] [facility] 2020-07-02 14:03:12 2020-07-02 15:33:09 [employer] Visit Lab, Adc Fam Pob I [facility] 1.114 350.1.13.10 4.2.7.2.686 [id number] [id number] [facility] 2020-07-02 13:47:35 2020-07-02 14:17:35 Office Visit Jess Leonard [facility] 1.114 350.1.13.10 4.2.7.2.686 [id number] [id number] [facility] 2020-07-02 14:00:00 2020-07-02 14:00:00 Outpatient R JESS LEONARD [facility] [id number] [facility] 2020-06-12 00:00:00 2020-06-12 00:00:00 Telephone Sylvia Leonardony [facility] 1.114 350.1.13.10 4.2.7.2.686 [id number] [id number] [facility] 2020-06-11 00:00:00 2020-06-11 00:00:00 Orders Only Doctor Unassigned, [place] ROBERT [facility] 1.2.840.114 350.1.13.10 4.2.7.2.686 [id number] [facility] 2020-06-10 00:00:00 2020-06-10 00:00:00 Telephone Jess Leonard [facility] 1.2.840.114 350.1.13.10 4.2.7.2.686 [id number] [facility] 2020-06-06 00:00:00 2020-06-06 00:00:00 Telephone Jess Leonard [facility] 1.2.840.114 350.1.13.10 4.2.7.2.686 [id number] [facility] 2020-06-03 00:00:00 2020-06-03 00:00:00 Refill Jess Leonard [facility] 1.2.840.114 350.1.13.10 4.2.7.2.686 [id number] [facility] 2020-05-06 00:00:00 2020-05-06 00:00:00 Refill Jess Leonard [facility] 1.2.840.114 350.1.13.10 4.2.7.2.686 [id number] [facility] 2020-04-07 09:38:15 2020-04-07 09:53:15 [employer] Operator Visit 2, Adc Lab Jess Leonard [facility] Building 1.2.840.114 350.1.13.10 4.2.7.2.686 [id number] [facility] 2020-04-07 09:07:25 2020-04-07 09:22:25 Office Visit Jess Leonard [facility] Building 1.2.840.114 350.1.13.10 4.2.7.2.686 [id number] [facility] 2020-04-07 09:15:00 2020-04-07 09:15:00 Outpatient R JESS LEONARD [facility] [id number] [facility] 2020-04-03 14:15:00 2020-04-03 14:15:00 Outpatient JESS MASON [facility] [id number] [facility] 2020-04-03 00:00:00 2020-04-03 00:00:00 Telephone Jess Leonard [facility] Building 1..840.114 350.1.13.10 4.2.7.2.686 [id number] [facility] 2020-03-04 00:00:00 2020-03-04 00:00:00 [facility] 1.840.114 350.1.13.10 4.2.7.2.686 [id number] [facility] 2020-01-30 00:00:00 2020-01-30 00:00:00 Refill [facility] One 1.2840.114 350.1.13.10 4.2.7.2.686 [id number] [id number] [facility] 2019 10:15:00 2019 10:15:00 Outpatient R JESS LEONARD [facility] [id number] [facility] 2019 07:33:51 2019 07:48:51 [facility] 1.2.840.114 350.1.13.10 4.2.7.2.686 [id number] [facility] 2019-12-04 00:00:00 2019-12-04 00:00:00 [facility]ill [facility] One 1.2840.114 350.1.13.10 4.2.7.2.686 [id number] [facility] 2019-11-05 00:00:00 2019-11-05 00:00:00 Refill Jess Leonard [facility] One 1.2840.114 350.1.13.10 4.2.7.2.686 [id number] [id number] [facility] 2019-09-27 13:53:14 2019-09-27 14:08:14 Office Visit Jess Leonard [facility] One 1.0.114 350.1.13.10 4.2.7.2.686 [id number] [id number] [facility] 2019-09-05 00:00:00 2019-09-05 00:00:00 Refill Jess Leonard [facility] One 1.2840.114 350.1.13.10 4.2.7.2.686 [id number] [id number] [facility] 2019-04-26 12:59:01 2019-04-26 13:34:43 Office Visit Jess Leonard [facility] One 1.0.114 350.1.13.10 4.2.7.2.686 [id number] [facility] 2019-04-05 14:04:36 2019-04-05 14:34:52 Office Visit Jess Leonard [facility] One 1.2840.114 350.1.13.10 4.2.7.2.686 [id number] [facility] 2019-03-12 00:00:00 2019-03-12 00:00:00 [facility] Office Building One 1.2840.114 350.1.13.10 4.2.7.2.686 [id number] [facility] 2019-03-08 00:00:00 2019-03-08 00:00:00 Refill Jess Leonard Count includes the [facility] Shyam silva Office Building One 1.2.840.114 350.1.13.10 4.2.7.2.686 [id number] [id number] [facility] Notes Date/Time Note Provider Source 2024-05-03 09:29:43 Please review and sign if appropriate: Last office visit: 03/15/24 Next office visit: 05/03/24 Requested Prescriptions Pending Prescriptions Disp Refills amphetamine-dextroamphetamine (ADDERALL XR) 30 mg 24 hr capsule 60 capsule 0 Sig: TAKE 1 CAPSULE BY MOUTH 2 TIMES DAILY. Last refill date: 03/15/24 Notes: Attention deficit disorder (ADD) without hyperactivity - Primary T Margie Hurst LVN [facility] 2024-05-03 09:14:01 Pt request rx refill. Please Advise. [facility] [id number] - [place], [place] - [facility] [facility] [address] [facility] [id number] [facility] 2024-03-28 15:33:04 Per [facility] pharmacy refill was received and can be filled tomorrow. Patient notified of all and verbalized understanding. [facility] 2024-03-28 15:30:26 Hunter Casey is a 58 year old male states his pharmacy never received medication on 03/15 Please re send dextroamphetamine-amphetamine ER 30 mg 24hr capsule,extend release (Adderall XR) to [facility] [id number] [place], [place] - [address] [facility] [address] Nghia Hurst [facility] 2024-02-27 10:28:00 Images from the original note were not included. Notes Last Refilled: Recent Visits Date Type Provider Dept 01/11/24 Office Visit Jess Leonard MD [facility] 12/08/23 Office Visit Jess Leonard MD [facility] 09/08/23 Office Visit Jess Leonard MD [facility] 06/09/23 Office Visit Jess Leonard MD [facility] 03/10/23 Office Visit Jess Leonard MD [facility] 12/09/22 Office Visit Jess Leonard MD [facility] 09/09/22 Office Visit Jess Leonard MD [facility] Showing recent visits within past 540 days with a meds authorizing provider and meeting all other requirements Future Appointments Date Type Provider Dept 03/15/24 Appointment Jess Leonard MD [facility] Showing future appointments within next 150 days with a meds authorizing provider and meeting all other requirements amphetamine-dextroamphetamine (ADDERALL XR) 30 mg 24 hr capsule Sig: TAKE 1 CAPSULE BY MOUTH 2 TIMES DAILY. Disp: 60 capsule Refills: 0 Start: 02/27/2024 Earliest Fill Date: 02/27/2024 Class: eRX For: Attention deficit disorder (ADD) without hyperactivity Last ordered: 3 weeks ago (02/01/2024) by Jess Leonard MD Provider Review Required Hieapt6302/27/2024 10:24 AM Protocol Details This refill cannot be delegated Valid encounter within last 12 months To be filled at: [facility] [id number] [place], [place] - [address] [facility] [address] [facility] 2024-02-27 10:24:01 Images from the original note were not included. Requested Renewals amphetamine-dextroamphetamine (ADDERALL XR) 30 mg 24 hr capsule Sig: TAKE 1 CAPSULE BY MOUTH 2 TIMES DAILY. Disp: 60 capsule Refills: 0 Start: 02/27/2024 Earliest Fill Date: 02/27/2024 Class: eRX For: Attention deficit disorder (ADD) without hyperactivity Last ordered: 3 weeks ago (02/01/2024) by Jess Leonard MD Provider Review Required Qlemwh0702/27/2024 10:23 AM Protocol Details This refill cannot be delegated Valid encounter within last 12 months [facility] be filled at: [facility] [id number] [address] [facility] [address] Recent Visits Date Type Provider Dept 01/11/24 Office Visit Jess Leonard MD [facility] 12/08/23 Office Visit Jess Leonard MD [facility] 09/08/23 Office Visit Jess Leonard MD [facility] 06/09/23 Office Visit Jess Leonard MD [facility] 03/10/23 Office Visit Jess Leonard MD [facility] 12/09/22 Office Visit Jess Leonard MD [facility] 09/09/22 Office Visit Jess Leonard MD [facility] Showing recent visits within past 540 days with a meds authorizing provider and meeting all other requirements Future Appointments Date Type Provider Dept 03/15/24 Appointment Jess Leonard MD [facility] Showing future appointments within next 150 days with a meds authorizing provider and meeting all other requirements Crystal Kerr LVN [facility] 2024-02-01 08:58:49 Images from the original note were not included. Requested Renewals amphetamine-dextroamphetamine (ADDERALL XR) 30 mg 24 hr capsule Sig: TAKE 1 CAPSULE BY MOUTH 2 TIMES DAILY. Disp: 60 capsule Refills: 0 Start: 02/01/2024 Earliest Fill Date: 02/01/2024 Class: eRX For: Attention deficit disorder (ADD) without hyperactivity Last ordered: 1 month ago (12/28/2023) by Jess Leonard MD Provider Review Required Fhmrgf4002/01/2024 08:56 AM Protocol Details This refill cannot be delegated Valid encounter within last 12 months To be filled at: [employer] [id number] [facility], [place] - [address] [facility] [address] Recent Visits Date Type Provider Dept 01/11/24 Office Visit Jess Leonard MD [facility] 12/08/23 Office Visit Jess Leonard MD [facility] 09/08/23 Office Visit Jess Leonard MD [facility] 06/09/23 Office Visit Jess Leonard MD [facility] 03/10/23 Office Visit Jess Lenoard MD [facility] 12/09/22 Office Visit Jess Leonard MD [facility] 09/09/22 Office Visit Jess Leonard MD [facility] Showing recent visits within past 540 days with a meds authorizing provider and meeting all other requirements Future Appointments Date Type Provider Dept 03/15/24 Appointment Jess Leonard MD [facility] Showing future appointments within next 150 days with a meds authorizing provider and meeting all other requirements Crystal Kerr LVN [facility] 2024-02-01 08:54:45 Hunter Casey is a 58 year old male and is calling for a refill on his amphetamine-dextroamphetamine (ADDERALL XR) 30 mg 24 hr capsule and states he has about 2-3 capsules left. Please advise the pt. [facility] [id number] [place], [place] - [address] [facility] [address] [facility] [id number] [facility] 2023-12-28 15:21:20 Copied from [facility] #[id number]. 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 Requested Renewals amphetamine-dextroamphetamine (ADDERALL XR) 30 mg 24 hr capsule Sig: TAKE 1 CAPSULE BY MOUTH 2 TIMES DAILY. Disp: 60 capsule Refills: 0 Start: 2023 Earliest Fill Date: 2023 Class: eRX For: Attention deficit disorder (ADD) without hyperactivity Last ordered: 1 month ago (11/23/2023) by Jess Leonard MD Provider Review Required Vcaqmy4212/27/2023 12:16 PM Protocol Details This refill cannot be delegated Valid encounter within last 12 months To be filled at: [place], [place] - [address] [facility] Recent Visits Date Type Provider Dept 12/08/23 Office Visit Jess Leonard MD [facility] 09/08/23 Office Visit Jess Leonard MD [facility] 06/09/23 Office Visit Jess Leonard MD [facility] 03/10/23 Office Visit Jess Leonard MD [facility] 12/09/22 Office Visit Jess Leonard MD [facility] 09/09/22 Office Visit Jess Leonard MD [facility] Showing recent visits within past 540 days with a meds authorizing provider and meeting all other requirements Future Appointments Date Type Provider Dept 03/15/24 Appointment Jess Leonard MD [facility] Showing future appointments within next 150 days with a meds authorizing provider and meeting all other requirements Crystal Kerr LVN [facility] 2023 12:13:33 Hunter Casey is a 57 year old male Patient called stating he is out of Adderall and needs a refill. Please contact [phone] (home) [facility] [address] [place] [address] - [address] [facility] [address] [facility] 2023-11-22 12:19:19 Hunter Casey is a 57 year old male Pt is requesting rx amphetamine-dextroamphetamine (ADDERALL XR) 30 mg 24 hr capsule filled at [facility] states due to insurance Pt can be reached at [phone] when complete Thank you [facility] [id number] [place] [address] - [address] [facility] [address] [facility] [address] Tabatha Ortega [facility] 2023-11-17 16:55:11 Images from the original note were not included. Requested Renewals amphetamine-dextroamphetamine (ADDERALL XR) 30 mg 24 hr capsule Sig: TAKE 1 CAPSULE BY MOUTH 2 TIMES DAILY. Disp: 60 capsule Refills: 0 Start: 11/17/2023 Earliest Fill Date: 11/17/2023 Class: eRX For: Attention deficit disorder (ADD) without hyperactivity Last ordered: 3 weeks ago (10/24/2023) by Jess Leonard MD Provider Review Required Mdrbgh2711/17/2023 04:54 PM Protocol Details This refill cannot be delegated Valid encounter within last 12 months To be filled at: [place], [place] - [address] [facility] Recent Visits Date Type Provider Dept 09/08/23 Office Visit Jess Leonard MD [facility] 06/09/23 Office Visit Jess Leonard MD [facility] 03/10/23 Office Visit Jess Leonard MD [facility] 12/09/22 Office Visit Jess Leonard MD [facility] 09/09/22 Office Visit Jess Leonard MD [facility] 06/10/22 Office Visit Jess Leonard MD [facility] Showing recent visits within past 540 days with a meds authorizing provider and meeting all other requirements Future Appointments Date Type Provider Dept 12/08/23 Appointment Jess Leonard MD [facility] Showing future appointments within next 150 days with a meds authorizing provider and meeting all other requirements [facility] [employer] 2023-11-17 16:52:14 Copied from [facility] #[id number]. 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 Patient would like medication sent to [facility] [id number] - [place], [place] - [address] [facility] [address] [facility] [employer] 2023-10-21 14:38:38 amphetamine-dextroamphetamine (ADDERALL XR) 30 mg 24 hr capsule 60 capsule 0 09/08/2023 Notes: [place], [place] - [address] [facility] Last Refilled: 09/08/23 Recent Visits Date Type Provider Dept 09/08/23 Office Visit Jess Leonard MD [facility] 06/09/23 Office Visit Jess Leonard MD [facility] 03/10/23 Office Visit Jess Leonard MD [facility] 12/09/22 Office Visit Jess Leonard MD [facility] 09/09/22 Office Visit Jess Lenoard MD [facility] 06/10/22 Office Visit Jess Leonard MD [facility] Showing recent visits within past 540 days with a meds authorizing provider and meeting all other requirements Future Appointments Date Type Provider Dept 12/08/23 Appointment Jess Leonard MD [facility] Showing future appointments within next 150 days with a meds authorizing provider and meeting all other requirements Petty Juares RN [facility] 2023-10-21 14:27:21 Hunter Casey is a 57 year old male and is calling to request a refill. Patient requesting a refill of: Medication: amphetamine-dextroamphetamine (ADDERALL XR) Dose: 30 mg 24 hr tablets Route: Oral Quantity: 60 tablets Pharmacy: [facility] [address] [address] [address] [facility] [id number] Last appt.: 09/08/23 Next appt.: 12/08/23 [facility] 2023-08-24 13:01:03 Images from the original note were not included. Requested Renewals amphetamine-dextroamphetamine (ADDERALL XR) 30 mg 24 hr capsule Sig: TAKE 1 CAPSULE BY MOUTH 2 TIMES DAILY. 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 Last ordered: 1 month ago (07/20/2023) by Jess Leonard MD Provider Review Required Exoluw9508/24/2023 12:48 PM Protocol Details This refill cannot be delegated Valid encounter within last 12 months To be filled at: [place], [place] - [address] Recent Visits Date Type Provider Dept 06/09/23 Office Visit Jess Leonard MD [facility] 03/10/23 Office Visit Jess Leonard MD [facility] 12/09/22 Office Visit Jess Leonard MD [facility] 09/09/22 Office Visit Jess Leonard MD [facility] 06/10/22 Office Visit Jess Leonard MD [facility] 03/25/22 Office Visit Jess Leonard MD [facility] 03/18/22 Office Visit Jess Leonard MD [facility] Showing recent visits within past 540 days with a meds authorizing provider and meeting all other requirements Future Appointments Date Type Provider Dept 09/08/23 Appointment Jess Leonard MD [facility] Showing future appointments within next 150 days with a meds authorizing provider and meeting all other requirements N Kerr LVN [facility] 2023-04-08 07:17:05 Formatting of this n ote is different from the original. Images from the original note were not included. Last Refilled: 03/10/23 Notes: [facility] [address] Recent Visits Date Type Provider Dept 03/10/23 Office Visit Jess Leonard MD [facility] 12/09/22 Office Visit Jess Leonard MD [facility] 09/09/22 Office Visit Jess Leonard MD [facility] 06/10/22 Office Visit Jess Leonard MD [facility] 03/25/22 Office Visit Jess Leonard MD [facility] 03/18/22 Office Visit Jess Leonard MD [facility] 12/24/21 Office Visit Jess Leonard MD [facility] Showing recent visits within past 540 days with a meds authorizing provider and meeting all other requirements Future Appointments Date Type Provider Dept 06/09/23 Appointment Jess Leonard MD [facility] Showing future appointments within next 150 days with a meds authorizing provider and meeting all other requirements amphetamine-dextroamphetamine (ADDERALL XR) 30 mg 24 hr capsule Sig: TAKE 1 CAPSULE BY MOUTH 2 TIMES DAILY. 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 Patient called requesting rx refill. Please advise [facility] 2023-03-10 15:00:00 Addended by: JESS LEONARD MD on: 03/10/2023 03:12 PM Modules accepted: Orders [facility]
--- NOTE | 2024-06-06 18:31 | RAD REPORT ---
EXAMINATION: XR LEFT HIP CLINICAL INDICATION: . PAIN TECHNIQUE: Multiple views of the left hip were obtained. COMPARISON: No prior exam. FINDINGS: Moderate degenerative change affects the superior aspect of left hip joint. No fracture, d islocation or AVN pattern observed. IMPRESSION: Moderate osteoarthritis.
[2024-06-06] MEDS ORDERED: MORPHINE 4 MG/ML SYR ONE (18:39)
[2024-06-06] MEDS ORDERED: ONDANSETRON 4 MG (ODT) TAB ONE (18:39)
--- NOTE | 2024-06-06 18:48 | ER ---
Nurse's Notes [facility] Name: Hunter Anderson Age: 58 yrs Sex: Male : 1965 Arrival Date: 06/06/2024 Time: 16:51 Bed 26 Private MD: Diagnosis: Pain in left hip Presentation: 06/06 17:15 Chief complaint: Patient states: L hip pain for 1 week, worse today. Coronavirus cm10 screen: Client denies travel out of the [place] in the last 14 days. At this time, the client does not indicate any symptoms associated with coronavirus-19. Ebola Screen: Patient denies travel to an Ebola-affected area in the 21 days before illness onset. Initial Sepsis Screen: Does the patient meet any 2 criteria? No. Patient's initial sepsis screen is negative. Does the patient have a suspected source of infection? No. Patient's initial sepsis screen is negative. Risk Assessment: Do you want to hurt yourself or someone else? Patient reports no desire to harm self or others. Onset of symptoms was May 30, 2024. 17:15 Method Of Arrival: Ambulatory cm10 17:15 Acuity: HAN 3 cm10 Triage Assessment: 17:15 General: Appears uncomfortable, Behavior is calm, cooperative, appropriate for age. ll1 Pain: Complains of pain in L hip Quality of pain is described as aching. Musculoskeletal: Reports pain in L hip. Historical: - Allergies: 17:14 NSAIDS; cm10 - PMHx: 17:14 ADD/ADHD; Hypertensive disorder; cm10 - PSHx: 17:14 hand surgery; cm10 - Immunization history:: Adult Immunizations up to date. - Social history:: Smoking status: Patient reports the use of cigarette tobacco products, smokes one pack cigarettes per day. Screenin:41 [facility] ED Fall Risk Assessment (Adult) History of falling in the last 3 months, jb4 including since admission No falls in past 3 months (0 pts) Confusion or Disorientation No (0 pts) Intoxicated or Sedated No (0 pts) Impaired Gait Yes (1 pt) Mobility Assist Device Used No (0 pt) Altered Elimination No (0 pt) Score/Fall Risk Level 0 - 2 = Low Risk Oriented to surroundings, Maintained a safe environment. Abuse screen: Denies threats or abuse. Nutritional screening: No deficits noted. Tuberculosis screening: No symptoms or risk factors identified. Assessment: 18:37 Reassessment: No changes from previously documented assessment. Patient and/or family ll1 updated on plan of care and expected duration. Pain level reassessed. Patient is alert, oriented x 3, equal unlabored respirations, skin warm/dry/pink. 19:41 Reassessment: Patient appears in no apparent distress at this time. Patient and/or jb4 family updated on plan of care and expected duration. Pain level reassessed. Patient is alert, oriented x 3, equal unlabored respirations, skin warm/dry/pink. Patient states feeling better. Vital Signs: 17:15 BP 170 / 123; Pulse 79; Resp 18; Temp 97.6; Pulse Ox 99% ; Weight 102.51 kg; Height 5 cm10 ft. 11 in. ; Pain 10/10; 19:41 BP 153 / 84; Pulse 81; Resp 16; Pulse Ox 99% on R/A; jb4 17:15 Body Mass Index 31.52 (102.51 kg, 180.34 cm) cm10 17:15 Pain Scale: Adult cm10 ED Course: 17:01 Patient arrived in ED. mg5 17:16 Sil[facility] Gutierrez FNP-C [facility]. kb 17:16 Luan Fu MD is Attending Physician. kb 17:16 Triage completed. cm10 18:12 Hip Left 2 View XRAY In Process Unspecified. EDMS 18:37 Arm band placed on Patient placed in an exam room, on a stretcher. ll1 18:38 Stepan Jones RN is Primary Nurse. jb4 19:41 Patient has correct armband on for positive identification. Call light in reach. Side jb4 rails up X 1. Provided Education on: discharge instructions.. 19:41 No provider procedures requiring assistance completed. Patient did not have IV access jb4 during this emergency room visit. Administered Medications: 17:23 CANCELLED (Duplicate Order): morphineor iv 4 mg IVP once over 4 mins kb 18:47 Drug: Ondansetron Oral Disintegrating Tablet Oral Disintegrating Tablet 4 mg PO once jb4 Route: PO; 18:59 Follow up: Response: No adverse reaction jb4 18:47 Drug: morphine IM 4 mg IM once Route: IM; Site: right deltoid; jb4 18:59 Follow up: Response: No adverse reaction; Marked relief of symptoms; Pain is decreased jb4 18:59 Drug: predniSONE PO 40 mg PO once Route: PO; jb4 18:59 Follow up: Response: Medication administered at discharge. jb4 Medication: 19:41 VIS not applicable for this client. jb4 Outcome: 18:48 Discharge ordered by . tonio 19:41 Discharged to home via wheelchair, jb4 19:41 Condition: stable 19:41 Discharge instructions given to patient, Instructed on discharge instructions, follow up and referral plans. no drinking with medication, no driving heavy equipment, medication usage, Demonstrated understanding of instructions, follow-up care, medications, Prescriptions given X 3, 19:43 Patient left the ED. jb4 Signatures: Dispatcher [employer] EDMS Silvia Gutierrez, SYSTEM PLANNING ENGINEER-C SYSTEM PLANNING ENGINEER-Stepan Garcia RN KAMALA jb4 Haven Forman RN RN ll1 Ruth Norris RN RN cm10 Jeanine Byers mg5 Corrections: (The following items were deleted from the chart) 18:37 17:15 Arm band placed on Patient placed in an exam room, on a stretcher, franco 1
--- NOTE | 2024-06-06 18:48 | EDPHYS ---
Physician Documentation [facility] Name: Hunter Anderson Age: 58 yrs Sex: Male : 1965 Arrival Date: 06/06/2024 Time: 16:51 Bed 26 Private MD: ED Physician Luan Fu HPI: 06/06 23:39 This 58 yrs old Male presents to ER via Ambulatory with complaints of Hip Pain. kb 23:39 Pt is a 58 year old male who presents for left hip pain that started one week ago. kb Denies injury or trauma. States the pain is worse today. Pain aggravated with weight bearing, improved with rest. . Historical: - Allergies: 17:14 NSAIDS; cm10 - PMHx: 17:14 ADD/ADHD; Hypertensive disorder; cm10 - PSHx: 17:14 hand surgery; cm10 - Immunization history:: Adult Immunizations up to date. - Social history:: Smoking status: Patient reports the use of cigarette tobacco products, smokes one pack cigarettes per day. ROS: 19:18 Constitutional: As per HPI kb Exam: 19:18 Constitutional: This is a well developed, well nourished patient who is awake, alert, kb and in no acute distress. Head/Face: Normocephalic, atraumatic. ENT: Moist Mucous membranes Cardiovascular: Regular rate Respiratory: Respirations even and unlabored. No increased work of breathing. Talking in full sentences Skin: Warm, dry with normal turgor. Normal color. Neuro: Awake and alert, GCS 15, oriented to person, place, time, and situation. 19:18 Musculoskeletal/extremity: Extremities: grossly normal except: noted in the left hip: decreased ROM, pain, tenderness, ROM: intact in all extremities, Circulation is intact in all extremities. Sensation intact. Weight bearing: can bear weight with assistance only, Vital Signs: 17:15 BP 170 / 123; Pulse 79; Resp 18; Temp 97.6; Pulse Ox 99% ; Weight 102.51 kg; Height 5 cm10 ft. 11 in. ; Pain 10/10; 19:41 BP 153 / 84; Pulse 81; Resp 16; Pulse Ox 99% on R/A; jb4 17:15 Body Mass Index 31.52 (102.51 kg, 180.34 cm) cm10 17:15 Pain Scale: Adult cm10 MDM: 17:16 Medical Screening Exam initiated kb 23:40 Differential diagnosis: hip fracture, arthritis, strain. Data reviewed: vital signs, kb nurses notes. Counseling: I had a detailed discussion with the patient and/or guardian regarding the historical points, exam findings, and any diagnostic results supporting the discharge/admit diagnosis, radiology results, the need for outpatient follow up, a family practitioner, to return to the emergency department if symptoms worsen or persist or if there are any questions or concerns that arise at home. 06/06 17:23 Order name: Hip Left 2 View XRAY; Complete Time: 18:35 kb Administered Medications: 17:23 CANCELLED (Duplicate Order): morphineor iv 4 mg IVP once over 4 mins kb 18:47 Drug: Ondansetron Oral Disintegrating Tablet Oral Disintegrating Tablet 4 mg PO once jb4 Route: PO; 18:59 Follow up: Response: No adverse reaction jb4 18:47 Drug: morphine IM 4 mg IM once Route: IM; Site: right deltoid; jb4 18:59 Follow up: Response: No adverse reaction; Marked relief of symptoms; Pain is decreased jb4 18:59 Drug: predniSONE PO 40 mg PO once Route: PO; jb4 18:59 Follow up: Response: Medication administered at discharge. jb4 Disposition: 06/07 07:44 Co-signature as Attending Physician, Luan Fu MD I reviewed the patient's care rn provided by the Advanced Practice Provider and agree with the diagnosis and treatment plan. Disposition Summary: 06/06/24 18:48 Discharge Ordered Notes: Location: Home kb Condition: Stable kb Diagnosis - Pain in left hip kb Followup: kb - With: Emergency Department - When: As needed - Reason: Worsening of condition Followup: kb - With: Private Physician - When: 2 - 3 days - Reason: Recheck today's complaints, Continuance of care, Re-evaluation by your physician Discharge Instructions: - Discharge Summary Sheet kb - Osteoarthritis kb Forms: - Medication Reconciliation Form kb - Antibiotic Education kb - Prescription Opioid Use kb - Patient Portal Instructions kb - Leadership Thank You Letter kb Prescriptions: - Prednisone 20 mg Oral Tablet - take 1 tablet ORAL route once daily for 5 days; 5 tablet; Refills: 0, Product kb Selection Permitted - Tramadol 50 mg Oral Tablet - take 1 tablet ORAL route every 8 hours as needed; 12 tablet; Refills: 0, kb Product Selection Permitted - orphenadrine citrate 100 mg Oral Tablet Sustained Release - take 1 tablet ORAL route 2 times per day As needed; 20 tablet; Refills: 0, kb Product Selection Permitted Signatures: Dispatcher [employer] Silvia Dempsey, JOSHUA-C SERVICE CREW LEADER-Luan Gibson MD MD rn Bryson, James, RN RN jb4 Ruht Norris RN RN cm10 Corrections: (The following items were deleted from the chart) 06/06 17:23 17:23 morphine IVP or IV 4 mg IVP once over 4 mins ordered. kb kb
[2024-06-06] MEDS ORDERED: predniSONE 20 MG TAB ONE (18:56)
[2024-06-06 20:21] VITALS: TEMP 97.6; O2SAT 99
[2024-06-06 20:22] VITALS: BP 153/84
== END 2024-06-06 19:43 | disposition home or self-care (01) ==
LOC: ER 16:51
DX: M25.552 Pain in left hip (principal); F17.210 Nicotine dependence, cigarettes, uncomplicated
CPT/HCPCS: 73502; J7512; Q0162; 96372; 99284